=== PATIENT | male | born 1990 | race African-American/Black ===

== ENCOUNTER 2024-03-07 07:23 | Emergency (ER) | payer BC ==
[~2024-03-07] VITALS: Ht 185.4 cm; Wt 84.0 kg
[2024-03-07 07:42] VITALS: BP 128/81; PULSE 83; RESP 18; TEMP 98.3; O2SAT 99
== END 2024-03-07 10:48 | disposition home or self-care (01) ==
LOC: ER 07:23
DX: R21 Rash and other nonspecific skin eruption (principal)
CPT/HCPCS: 99281